=== PATIENT | male | born 1965 | race Caucasian/White ===

== ENCOUNTER 2020-09-16 11:47 | Observation (INO) ==
[2020-09-16] MEDS ORDERED: NORMAL SALINE 1,000 ML IV ONE (12:15)
--- NOTE | 2020-09-16 12:30 | ERNOTE ---
Dyspnea - Date Date of Service: 09/16/20 - General Presenting Symptoms: shortness of breath Time Seen by Provider: 09/16/20 11:56 Source: patient, family, EMS, RN notes reviewed, old records Exam Limitations: clinical condition - Immun/Allergies/Home Medications Immunizations: IMMUNIZATION HX Immunizations Up to Date Yes History of Influenza Vaccine Yes Hx Pneumococcal Vaccination No Allergies/Adverse Reactions: Allergies Sulfa (Sulfonamide Antibiotics) Allergy (Mild, Verified 08/14/20 14:10) RASH sulfamethoxazole [From Bactrim] Allergy (Mild, Verified 08/14/20 14:10) RASH trimethoprim [From Bactrim] Allergy (Mild, Verified 08/14/20 14:10) RASH Home Medications: HOME MEDICATIONS metoprolol tartrate 100 mg tablet 100 mg PO BID #60 tab 06/11/20 [Last Taken Unknown] hydrochlorothiazide 25 mg tablet 25 mg PO DAILY #30 tab 07/10/20 [Last Taken Unknown] - History of Present Illness Narrative: Dee is a 55-year-old male brought to the emergency department by ambulance from his home for shortness of breath. He began having shortness of breath with exertion and at rest 2 days ago. He has been extremely fatigued and has mostly been in bed. He has not been eating or drinking well. He was diagnosed with HIV in 1983. He has not been on antiviral drugs for approximately 10 years, but was seen in the virology clinic at the [facility] last week for preliminary testing prior to restarting his medications. A lumbar puncture was done on the . His mother reports that he seemed tired the following 2 days, but the next day he was doing much worse. She believes he has had some fevers. He has occasionally reported back pain. He denies any back pain currently. He does report having some pain in his chest off and on. He denies any vomiting or diarrhea. He has been having problems with his balance and has developed neuropathy in his lower extremities. He also had an MRI to evaluate this earlier in the month. His documents from his appointment last week show a CD4 count of 38. Date (Duration): 09/14/20 Treatment FIRER KILN: paramedics, oxygen Initiating event: Reports: unknown Frequency of episodes: Reports: no prior episodes Modifying Factors - (Improves): Reports: nothing Modifying Factors (Worsens): Reports: activity Associated Symptoms-Dyspnea: Reports: fever/chills, chest pain/discomfort, dizziness, weakness, loss of appetite. Denies: cough, wheezing, ankle/leg swelling Prior Treatment: Reports: recently seen. Denies: currently on antibiotics Review of Systems - Review of Systems Constitutional: Present: fatigue, malaise EYE: Present: no symptoms reported ENT: Absent: ear pain, nose congestion, nasal drainage, sore throat Respiratory: Present: shortness of breath. Absent: cough, wheezing Cardiology: Present: chest pain. Absent: syncope, edema Gastrointestinal/Abdominal: Present: eating less, drinking less. Absent: nausea, vomiting, diarrhea, abdominal pain Genitourinary: Absent: frequency, dysuria Musculoskeletal: Absent: back pain, joint pain Skin: Absent: rash, lesions Neurological: Present: dizziness/light-headedness, weakness. Absent: headache Endocrine: Present: no symptoms reported Hematologic/Lymphatic: Absent: easy bruising, easy bleeding Psych: Present: no symptoms reported Medical History (Last Reviewed 09/16/20 @ 12:27 by Dee Collazo NP) PVC (premature ventricular contraction) (Chronic) Holter 2020 PAC (premature atrial contraction) (Chronic) Holter 2020 Tachycardia (Chronic) Benign essential hypertension (Chronic) BPH w urinary obs/LUTS (Chronic) Elevated BP without diagnosis of hypertension (Chronic) Back pain (Chronic) Obesity (BMI 30.0-34.9) (Chronic) Onset Date: 02/14/17 Elevated PSA (Acute) Onset Date: 06/05/16 HIV (human immunodeficiency virus infection) 1984 Chronic sinusitis Onset Date: Unknown Surgical History: Surgical History (Last Reviewed 09/16/20 @ 12:27 by Dee Collazo NP) Hx of arthroscopy of right knee Onset Date: 06/25/11 Dr. Brady Hx of colonoscopy Onset Date: 02/19/16 Hx of sinus surgery Onset Date: 10/10/09 Dr. Crista Calle teeth extracted Onset Date: Unknown Family History: Family History (Last Reviewed 09/16/20 @ 12:27 by Dee Collazo NP) Mother Hypertension Hiatal hernia Father , Age 72 Unsure of hx No problems noted. 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 Highest level of school completed/degree received: high school graduate Service: No Tobacco: Smoking Status: Never smoker Alcohol: alcohol intake: former Substance Use: substance use type: does not use Dietary Habits: caffeine: Yes caffeine comment: Current every day Type: tea Physical Exam - Physical Exam General Appearance: Present: wd/wn, alert, mild distress, other - ill appearing Head Exam: Present: normal inspection Eye Exam: Normal inspection: bilateral Neck: Present: normal inspection, nontender, supple, full range of motion Respiratory: Present: accessory muscle use - dyspneic at rest, difficulty speaking in full sentences, decreased breath sounds - throughout Cardiovascular/Chest: Present: regular rate, rhythm, no murmur, normal peripheral pulses Gastrointestinal/Abdominal: Present: nontender, nondistended, soft Back Exam: Present: normal inspection, no vertebral tenderness, other - no erythema, drainage or tenderness at LP site Extremity Exam: Present: normal inspection, non-tender, no edema Neurological Exam: Present: alert, normal mood/affect, other - oriented most of the time but does have some intermittent confusion, poor historian Skin Exam: Present: warm/dry, other - pale Progress - Results and Orders Patient's Lab Results:: I have reviewed the patient's lab results. - Vital Signs Patient's Vital Signs:: I have reviewed the patient's vital signs. Vital Signs: Vital Signs 09/16/20 11:48 Temperature 37.7 C Pulse Rate 102 H Respiratory Rate 26 H Blood Pressure 105/71 O2 Sat by Pulse Oximetry 92 L - EKG EKG #1 EKG: NSR EKG read: Reviewed by me - X-Ray X-Ray #1 X-Ray: chest Interpretation: Reviewed by me X-ray Comments: Technique: PA and lateral views. Comparison: None Findings: There is infiltrate and/or atelectatic change in lung bases, greater on the left than the right. No pleural effusion. Heart size and pulmonary vascular caliber is normal. The skeletal structures are intact. IMPRESSION: BIBASILAR INFILTRATE AND/OR ATELECTASIS, GREATER ON THE LEFT THAN THE RIGHT. Electronically signed by Lm Cervantes MD. mL Cervantes MD - CT/Ultrasound CT/Ultrasound Narrative: CTA Chest: IMPRESSION: NO PULMONARY THROMBOEMBOLIC DISEASE. BILATERAL INFILTRATES AND/OR ATELECTASIS. MODERATE DIFFUSE HEPATIC STEATOSIS. PROBABLE CENTIMETER-SIZED INTRAHEPATIC CYST OR HEMANGIOMA. Electronically signed by Lm Cervantes MD. - Progress/Reassessment Chief Complaint: Dyspnea Progress:: Unchanged Progress Note-Subjective: 09/16/20 14:55 Discussed test results with the patient and his mother. CTA chest is negative for PE but does show bibasilar infiltrates. Work-up is otherwise unremarkable. Negative respiratory panel. Normal EKG and troponin. Patient has vomited once while in the department. He was given Zofran and has had no further vomiting. He continues to appear dyspneic and generally ill. His oxygen saturation was 90-92% on room air, this improved to the upper 90's with 2 liters via nasal canula. I contacted the consult line at [facility] to speak to Dr. Connors. Awaiting a call back from the on-call physician covering infectious disease. 09/16/20 15:[address] Araya from [facility]. He recommended initiating treatment for community acquired pneumonia under observation. He also recommended testing for histoplasmosis which I have ordered. 09/16/20 15:47 Dr. Merino agreed to admit the patient to observation. Levaquin ordered. Departure Clinical Impression: Symptomatic AIDS, Elevated BP without diagnosis of hypertension, Pneumonia - Departure Disposition: Still a patient Condition: Stable Referrals: Gurmeet Sanderson MD [Primary Care Provider] -
[2020-09-16] MEDS ORDERED: ONDANSETRON HCL/PF 2 MG/ML VIAL IV ONE (12:37)
[2020-09-16 12:38] LABS: Hematocrit 43.2 % (42.0-52.0); Hemoglobin 14.6 gm/dL (13.5-18.0); Mean Cell Volume 87.6 fl (78-100); Mean Corpuscular Hemoglobin 29.6 pg (27-31); Mean Corpuscular Hgb Conc 33.8 g/dl (32-36); Mean Platelet Volume 12.5 fl (8-11.3); Neutrophil % 75.5 % (42-75.0); Platelet Count 105 K/mm3 (150-450); Red Blood Count 4.93 M/mm3 (4.7-6.0); Red Cell Distribution Width 12.4 % (11.5-14.0); White Blood Count 6.6 K/mm3 (4.0-10.5)
[2020-09-16 12:47] LABS: Urine Bilirubin 3 mg/dl (NEGATIVE); Urine Blood Negative /ul (NEGATIVE); Urine Ketone Negative (NEGATIVE); Urine Nitrite Negative (NEGATIVE); Urine Protein 100 mg/dL (NEGATIVE); Urine Specific Gravity >=1.030 SP.GR. (1.005-1.030); Urine pH 5.5 pH (5.0-7.0)
[2020-09-16 12:57] LABS: Troponin I Less than 0.017 ng/mL (0.00-0.10)
[2020-09-16 12:58] LABS: Urine Appearance Cloudy (CLEAR); Urine Color Dark Yellow
[2020-09-16 12:58] LABS: ALT 21 U/L (19-67); AST 21 U/L (0-48); Albumin * 3.7 gm/dl (3.4-5.0); Alkaline Phosphatase * 48 U/L (50-170); BNP * 153 pg/mL (5-175); BUN/Creatinine Ratio 21.2 (9.0-21.6); Bilirubin, Total 1.4 mg/dL (0.0-1.1); Blood Urea Nitrogen 31 mg/dL (6-23); Ca. Corrected For Albumin 8.7 mg/dL (8.4-10.2); Calcium * 8.8 mg/dL (7.9-10.9); Carbon Dioxide 26.6 mmol/L (24-32.6); Chloride 99 mmol/L (97-106); Glucose * 166 mg/dL (70-110); Potassium 3.6 mmol/L (3.4-4.6); Sodium 138 mmol/L (132-142); Total Protein 8.6 gm/dL (6.2-8.2)
[2020-09-16 12:59] LABS: Urine Bacteria 2+; Urine Fine Granular Cast 0-5 /LPF; Urine Mucus Moderate - 2+; Urine RBC None Seen /hpf (0-5); Urine WBC 0-5 /hpf (0-5)
[2020-09-16 14:32] LABS: SARS-CoV-2 Not Detected (NotDetected)
[2020-09-16] MEDS ORDERED: LEVOFLOXACIN IN DEXTROSE 5 % 750 MG/150 ML BAG IV SCH (15:45)
[2020-09-16] MEDS ORDERED: ACETAMINOPHEN 325 MG TABLET PO PRN (16:44)
[2020-09-16] MEDS ORDERED: ONDANSETRON HCL/PF 2 MG/ML VIAL IV PRN (16:45)
[2020-09-16] MEDS ORDERED: NORMAL SALINE 2,000 ML IV ONE (16:46)
--- NOTE | 2020-09-16 17:11 | HP ---
Chief Complaint - Chief Complaint Date of Service: 09/16/20 Time of Service: 17:01 Chief Complaint: I have had shortness of breath, weakness, and pleuritic chest pain for more than 1 week. History of Present Illness: 55-year-old male with past medical history of HIV AIDS, BPH, and hypertension was evaluated in the ER for increasing weakness, nausea and episode of vomiting. The patient reports for over a week he has not been feeling well, and says he has been unable to eat or drink due to loss of appetite. The patient was diagnosed with HIV over 30 years ago and has been off of antivirals for over 10 years because he says he did not want to take those medications. He saw his neurologist at the [place] a week ago and was restarted on antiviral medications and dapsone, however he has not received the medications yet. He describes a pleuritic chest pain which is accompanied by shortness of breath which has made breathing very difficult. He also describes weakness in his lower extremities which makes ambulating difficult, however he denies any recent falls. Medical History (Last Reviewed 09/16/20 @ 12:27 by Dee Collazo NP) PVC (premature ventricular contraction) (Chronic) Holter 2020 PAC (premature atrial contraction) (Chronic) Holter 2020 Tachycardia (Chronic) Benign essential hypertension (Chronic) BPH w urinary obs/LUTS (Chronic) Elevated BP without diagnosis of hypertension (Chronic) Back pain (Chronic) Obesity (BMI 30.0-34.9) (Chronic) Onset Date: 02/14/17 Elevated PSA (Acute) Onset Date: 06/05/16 HIV (human immunodeficiency virus infection) 1984 Chronic sinusitis Onset Date: Unknown Surgical History: Surgical History (Last Reviewed 09/16/20 @ 12:27 by Dee Collazo NP) Hx of arthroscopy of right knee Onset Date: 06/25/11 Dr. Brady Hx of colonoscopy Onset Date: 02/19/16 Hx of sinus surgery Onset Date: 10/10/09 Dr. Crista Calle teeth extracted Onset Date: Unknown Family History: Family History (Last Reviewed 09/16/20 @ 12:27 by Dee Collazo NP) Mother Hypertension Hiatal hernia Father , Age 72 Unsure of hx No problems noted. 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 Highest level of school completed/degree received: high school graduate Service: No Tobacco: Smoking Status: Never smoker Alcohol: alcohol intake: former Substance Use: substance use type: does not use Dietary Habits: caffeine: Yes caffeine comment: Current every day Type: tea Peds Patient Hx - Developmental: No Pertinent Hx Peds Patient Hx - Medical: No Pertinent Hx Peds Patient Hx - Cardiac/Respiratory: No Pertinent Hx Peds Patient Hx - Surgical: No Surgical History Patient History - Cancer: No Hx of Cancer Review Of Systems (GEN) - Review of Systems Generalized/Overall Review: Present: Weakness, Chills, Fever EENTM: Present: No Symptoms Reported Respiratory: Present: Shortness of Breath Cardiac: Present: No Symptoms Reported Abdominal: Present: Nausea, Vomiting Genitourinary: Present: No Symptoms Reported Musculoskeletal: Present: No Symptoms Reported Neurological: Present: No Symptoms Reported Skin: Present: No Symptoms Reported Endocrine: Present: No Symptoms Reported Immunizations: IMMUNIZATION HX Immunizations Up to Date Yes History of Influenza Vaccine Yes Hx Pneumococcal Vaccination No Allergies/Adverse Reactions: Allergies Allergy/AdvReac Type Severity Reaction Status Date / Time Sulfa (Sulfonamide Allergy Mild RASH Verified 08/14/20 14:10 Antibiotics) sulfamethoxazole Allergy Mild RASH Verified 08/14/20 14:10 [From Bactrim] trimethoprim [From Bactrim] Allergy Mild RASH Verified 08/14/20 14:10 Home Medications: HOME MEDICATIONS metoprolol tartrate 100 mg tablet 100 mg PO BID #60 tab 06/11/20 [Last Taken Unknown] hydrochlorothiazide 25 mg tablet 25 mg PO DAILY #30 tab 07/10/20 [Last Taken Unknown] Exam - Exam Vital Signs: Vital Signs - Last Taken Temp 37.7 C 09/16/20 16:40 Pulse 97 09/16/20 16:40 Resp 25 H 09/16/20 16:40 BP 100/63 09/16/20 16:40 Pulse Ox 97 09/16/20 16:40 Constitutional: Present: Alert, Oriented x3, Cooperative, Well developed, Well nourished, No distress ENT Exam: Present: normal ENT inspection, hearing grossly normal Eye Exam: bilateral eye: normal inspection, PERRL, EOMI Neck: Present: non-tender, full range of motion, supple, normal inspection, trachea midline Back Exam: Present: normal inspection, no CVA tenderness, no vertebral tenderness Breasts: Present: Exam deferred, Nontender Respiratory: Present: chest non-tender, lungs clear, normal breath sounds, no respiratory distress, no accessory muscle use, decreased breath sounds Cardiovascular/Chest: Present: normal peripheral pulses, regular rate, rhythm, no chest tenderness, no edema, no gallop, no JVD, no murmur, no rub Peripheral Pulses: dorsalis-pedis (R): 2+, dorsalis-pedis (L): 2+ Abdomen: Present: Normal bowel sounds, soft, nontender, nondistended, no rebound tenderness, no hepatospenomegaly, no masses /Rectal: Present: Exam deferred Extremity: Present: normal range of motion, non-tender, normal inspection, no pedal edema, no calf tenderness, normal capillary refill, pelvis stable Skin Exam: Present: normal color, warm/dry, no cyanosis Lymphatic: Present: no adenopathy 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, normal cerebellar test, no motor/sensory deficits, alert, normal mood/affect, oriented x 3 Appearance: Present: appropriate appearance, appropriate insight, neat, no memory impairment Eye contact: Present: cooperative, good eye contact, normal speech Thoughts: Present: normal thought pattern, no apparent hallucination Diagnostic Studies: Abnormal Lab Results 09/16/20 09/16/20 09/16/20 Range/Units 12:13 12:29 12:29 Plt Count 105 L (150-450) K/mm3 MPV 12.5 H (8-11.3) fl Immature Gran % (Auto) 0.50 H (0.001-0.429) % Neutrophils % 75.5 H (42-75.0) % Lymphocytes % 14.3 L (20-51) % Monocytes % 9.4 H (0.0-9) % Lymphocytes # 0.94 L (1.5-3.5) k/mm3 D-Dimer 2.20 H (0.19-0.49) ugFEU/mL Anion Gap 16.0 H (6.8-13.8) mmol/L BUN 31 H D (6-23) mg/dL Creatinine 1.46 H D (0.4-1.4) mg/dL Est GFR (Non-Af Amer) 53 L D (60-130) mL/min Random Glucose 166 H (70-110) mg/dL Total Bilirubin 1.4 H (0.0-1.1) mg/dL Alkaline Phosphatase 48 L (50-170) U/L Total Protein 8.6 H (6.2-8.2) gm/dL Urine Protein (NEGATIVE) mg/dL Urine Bilirubin (NEGATIVE) mg/dl Urine Urobilinogen (NORMAL) EU/dl Urine Bacteria (NONE) Fine Granular Casts (NONE) /LPF Urine Mucus (NONE) 09/16/20 Range/Units 12:43 Plt Count (150-450) K/mm3 MPV (8-11.3) fl Immature Gran % (Auto) (0.001-0.429) % Neutrophils % (42-75.0) % Lymphocytes % (20-51) % Monocytes % (0.0-9) % Lymphocytes # (1.5-3.5) k/mm3 D-Dimer (0.19-0.49) ugFEU/mL Anion Gap (6.8-13.8) mmol/L BUN (6-23) mg/dL Creatinine (0.4-1.4) mg/dL Est GFR (Non-Af Amer) (60-130) mL/min Random Glucose (70-110) mg/dL Total Bilirubin (0.0-1.1) mg/dL Alkaline Phosphatase (50-170) U/L Total Protein (6.2-8.2) gm/dL Urine Protein 100 H (NEGATIVE) mg/dL Urine Bilirubin 3 H (NEGATIVE) mg/dl Urine Urobilinogen 2.0 H (NORMAL) EU/dl Urine Bacteria 2+ H (NONE) Fine Granular Casts 0-5 H (NONE) /LPF Urine Mucus Moderate - 2+ H (NONE) Laboratory Results WBC 6.6 K/mm3 (4.0-10.5) 09/16/20 12:13 RBC 4.93 M/mm3 (4.7-6.0) 09/16/20 12:13 Hgb 14.6 gm/dL (13.5-18.0) 09/16/20 12:13 Hct 43.2 % (42.0-52.0) 09/16/20 12:13 MCV 87.6 fl (78-100) 09/16/20 12:13 MCH 29.6 pg (27-31) 09/16/20 12:13 MCHC 33.8 g/dl (32-36) 09/16/20 12:13 RDW 12.4 % (11.5-14.0) 09/16/20 12:13 Plt Count 105 K/mm3 (150-450) L 09/16/20 12:13 MPV 12.5 fl (8-11.3) H 09/16/20 12:13 Immature Gran % (Auto) 0.50 % (0.001-0.429) H 09/16/20 12:13 Immature Gran # (Auto) 0.03 K/mm3 (0.000-0.0310) 09/16/20 12:13 Neutrophils % 75.5 % (42-75.0) H 09/16/20 12:13 Lymphocytes % 14.3 % (20-51) L 09/16/20 12:13 Monocytes % 9.4 % (0.0-9) H 09/16/20 12:13 Eosinophils % 0.0 % (0.0-3.0) 09/16/20 12:13 Basophils % 0.3 % (0.0-1.0) 09/16/20 12:13 Nucleated RBC % 0.0 k/mm3 (0-1) 09/16/20 12:13 Neutrophils # 5.0 K/mm3 (1.3-6.0) 09/16/20 12:13 Lymphocytes # 0.94 k/mm3 (1.5-3.5) L 09/16/20 12:13 Monocytes # 0.6 k/mm3 (0.0-1.0) 09/16/20 12:13 Eosinophils # 0.0 k/mm3 (0.0-0.7) 09/16/20 12:13 Absolute Basophils 0.0 k/mm3 (0.0-0.1) 09/16/20 12:13 D-Dimer 2.20 ugFEU/mL (0.19-0.49) H 09/16/20 12:29 Sodium 138 mmol/L (132-142) 09/16/20 12:29 Plasma Sodium 139 mmol/L (130-142) 09/16/20 12:29 Potassium 3.6 mmol/L (3.4-4.6) 09/16/20 12:29 Chloride 99 mmol/L (97-106) 09/16/20 12:29 Carbon Dioxide 26.6 mmol/L (24-32.6) 09/16/20 12:29 Anion Gap 16.0 mmol/L (6.8-13.8) H 09/16/20 12:29 BUN 31 mg/dL (6-23) H D 09/16/20 12:29 Creatinine 1.46 mg/dL (0.4-1.4) H D 09/16/20 12:29 Est GFR (Non-Af Amer) 53 mL/min (60-130) L D 09/16/20 12:29 BUN/Creatinine Ratio 21.2 (9.0-21.6) 09/16/20 12:29 Random Glucose 166 mg/dL (70-110) H 09/16/20 12:29 Lactic Acid, Venous 1.9 mmol/L (0.4-2.0) 09/16/20 12:29 Calcium 8.8 mg/dL (7.9-10.9) 09/16/20 12:29 Calcium Adj for Albumin 8.7 mg/dL (8.4-10.2) 09/16/20 12:29 Total Bilirubin 1.4 mg/dL (0.0-1.1) H 09/16/20 12:29 AST 21 U/L (0-48) 09/16/20 12:29 ALT 21 U/L (19-67) 09/16/20 12:29 Alkaline Phosphatase 48 U/L (50-170) L 09/16/20 12:29 Troponin I Less than 0.017 ng/mL (0.00-0.10) 09/16/20 12:29 B-Natriuretic Peptide 153 pg/mL (5-175) 09/16/20 12:29 Total Protein 8.6 gm/dL (6.2-8.2) H 09/16/20 12:29 Albumin 3.7 gm/dl (3.4-5.0) 09/16/20 12:29 Urine Color Dark yellow 09/16/20 12:43 Urine Appearance Cloudy (CLEAR) 09/16/20 12:43 Urine pH 5.5 pH (5.0-7.0) 09/16/20 12:43 Ur Specific [place] >=1.030 SP.GR. (1.005-1.030) 09/16/20 12:43 Urine Protein 100 mg/dL (NEGATIVE) H 09/16/20 12:43 Urine Glucose (UA) Negative mg/dL (NEGATIVE) 09/16/20 12:43 Urine Ketones Negative mg/dL (NEGATIVE) 09/16/20 12:43 Urine Blood Negative /ul (NEGATIVE) 09/16/20 12:43 Urine Nitrate Negative (NEGATIVE) 09/16/20 12:43 Urine Bilirubin 3 mg/dl (NEGATIVE) H 09/16/20 12:43 Urine Urobilinogen 2.0 EU/dl (NORMAL) H 09/16/20 12:43 Ur Leukocyte Esterase Negative /ul (NEGATIVE) 09/16/20 12:43 Urine RBC None seen /hpf (0-5) 09/16/20 12:43 Urine WBC 0-5 /hpf (0-5) 09/16/20 12:43 Ur Epithelial Cells 0-5 /hpf (0-5) 09/16/20 12:43 Urine Bacteria 2+ (NONE) H 09/16/20 12:43 Fine Granular Casts 0-5 /LPF (NONE) H 09/16/20 12:43 Urine Mucus Moderate - 2+ (NONE) H 09/16/20 12:43 Urine Culture Comments No culture indicated 09/16/20 12:43 Chlamy pneumoniae PCR Not detected (NotDetected) 09/16/20 13:34 Adenovirus (PCR) Not detected (NotDetected) 09/16/20 13:34 B. pertussis DNA (PCR) Not detected (NotDetected) 09/16/20 13:34 B.parapertussis DNA PCR Not detected (NotDetected) 09/16/20 13:34 Coronavirus OC43 (PCR) Not detected (NotDetected) 09/16/20 13:34 Coronavirus HKU1 (PCR) Not detected (NotDetected) 09/16/20 13:34 Coronavirus 229E (PCR) Not detected (NotDetected) 09/16/20 13:34 Coronavirus NL63 (PCR) Not detected (NotDetected) 09/16/20 13:34 Human Metapneumovir PCR Not detected (NotDetected) 09/16/20 13:34 Influenza A (RT-PCR) Not detected (NotDetected) 09/16/20 13:34 Influenza B (RT-PCR) Not detected (NotDetected) 09/16/20 13:34 M. pneumoniae (PCR) Not detected (NotDetected) 09/16/20 13:34 Parainfluenza 1 (PCR) Not detected (NotDetected) 09/16/20 13:34 Parainfluenza 2 (PCR) Not detected (NotDetected) 09/16/20 13:34 Parainfluenza 3 (PCR) Not detected (NotDetected) 09/16/20 13:34 Parainfluenza 4 (PCR) Not detected (NotDetected) 09/16/20 13:34 RSV (PCR) Not detected (NotDetected) 09/16/20 13:34 Rhinovirus (PCR) Not detected (NotDetected) 09/16/20 13:34 SARS-CoV-2 (PCR) Not detected (NotDetected) 09/16/20 13:34 Assessment/Plan - Narrative Narrative: Patient was evaluated medical chart was reviewed and decision to admit for a diagnosis of community-acquired bilateral interstitial pneumonia/community- acquired pneumonia, dehydration, CHUY, and HIV AIDS was made. Patient is resting comfortably in his room and is tolerating IV hydration with normal saline without any issues. At bedside he appears moderately dehydrated and this is confirmed with his lab results. Patient was found to have an CHUY most likely secondary to acute dehydration, he will need at least 1 night of intrahospital treatment with IV hydration and antibiotics to treat bilateral interstitial pneumonia. He is currently on oxygen due to mild hypoxia upon arriving to the hospital and has better breathing. Repeat lab has been ordered for tomorrow morning for reevaluation of renal function and electrolytes as well as bilirubin which is also mildly elevated on admission. The patient reports that he has been restarted on certain medications but does not recall the name, will contact his pharmacy in order to get a current list of his medications so that we continue administering during the hospitalization. - Assessment/Plan (1) Acute interstitial pneumonia Problem: Acute (2) Symptomatic AIDS Problem: Acute (3) Moderate dehydration Problem: Acute (4) CHUY (acute kidney injury) Problem: Acute (5) Elevated bilirubin Problem: Acute (6) Generalized weakness Problem: Acute
[2020-09-16] MEDS: PANTOPRAZOLE SODIUM 40 MG in NORMAL SALINE 100 ML IV SCH (17:54)
[2020-09-16] MEDS: FLUCONAZOLE 200 MG TABLET PO SCH (21:29)
[2020-09-16] MEDS: METOPROLOL TARTRATE 100 MG TABLET PO SCH (21:29)
[2020-09-16] MEDS: NYSTATIN ORAL.SUSP PO SCH (21:30)
[2020-09-17] MEDS: PANTOPRAZOLE SODIUM 40 MG in NORMAL SALINE 100 ML IV SCH (04:32)
[2020-09-17 06:39] LABS: Anion Gap 13.2 mmol/L (6.8-13.8); BUN/Creatinine Ratio 23.1 (9.0-21.6); Ca. Corrected For Albumin 8.8 mg/dL (8.4-10.2); Calcium * 8.3 mg/dL (7.9-10.9); Carbon Dioxide 27.1 mmol/L (24-32.6); Potassium 3.3 mmol/L (3.4-4.6); Total Protein 7.2 gm/dL (6.2-8.2)
[2020-09-17] MEDS: ATOVAQUONE 750 MG/5 ML PO SCH ×2 (08:02→10:04)
[2020-09-17] MEDS: METOPROLOL TARTRATE 100 MG TABLET PO SCH (08:04)
[2020-09-17] MEDS: FLUCONAZOLE 200 MG TABLET PO SCH (08:04)
[2020-09-17] MEDS: NYSTATIN ORAL.SUSP PO SCH ×2 (08:07→13:15)
[2020-09-17] MEDS ORDERED: POTASSIUM CHLORIDE 20 MEQ TABLET.SA PO ONE (09:57)
--- NOTE | 2020-09-17 12:09 | DS ---
(1) Acute interstitial pneumonia Problem: Acute (2) Symptomatic AIDS Problem: Acute (3) Moderate dehydration Problem: Resolved (4) CHUY (acute kidney injury) Problem: Resolved (5) Elevated bilirubin Problem: Resolved (6) Generalized weakness Problem: Resolved Date of Discharge:: 09/17/20 Hospital Course: 55-year-old male admitted for moderate dehydration, generalized weakness, CHUY, and HIV AIDS was evaluated at bedside this morning was found to be afebrile and in no acute distress. The patient has responded favorably to the intrahospital treatment with IV fluids and IV antibiotics. He has had no recurrence of fever and reports feeling stronger than before. Repeat labs done this morning revealed resolution of his CHUY and normalization of bilirubin levels which confirms my suspicion of acute dehydration. The patient is now tolerating oral intake and denies any GI issues. Therefore given these findings we will discharge him home with additional days of p.o. antibiotics. This morning the patient had to be straight cath due to urinary retention most likely due to his history of BPH and the fluids that he was administered during hospitalization, however after the catheterization the issue has resolved. He was informed this morning that results from histoplasmosis has not returned, once it becomes available we will inform him on an outpatient basis. In the meantime he is to follow-up with his PCP in 3 to 5 days. Patient will also be referred to outpatient physical therapy to address weakness in both lower extremity that makes it difficult to stand and ambulate. Procedures Performed: see notes below List Procedures: Straight catheterization of bladder. Results and Findings: Lab Pending Results 09/16/20 12:13: WBC 6.6, RBC 4.93, Hgb 14.6, Hct 43.2, MCV 87.6, MCH 29.6, MCHC 33.8, RDW 12.4, Plt Count 105 L, MPV 12.5 H, Immature Gran % (Auto) 0.50 H, Immature Gran # (Auto) 0.03, Neutrophils % 75.5 H, Lymphocytes % 14.3 L, Monocytes % 9.4 H, Eosinophils % 0.0, Basophils % 0.3, Nucleated RBC % 0.0, Neutrophils # 5.0, Lymphocytes # 0.94 L, Monocytes # 0.6, Eosinophils # 0.0, Absolute Basophils 0.0 09/16/20 12:29: Sodium 138, Plasma Sodium 139, Potassium 3.6, Chloride 99, Carbon Dioxide 26.6, Anion Gap 16.0 H, BUN 31 H D, Creatinine 1.46 H D, Est GFR (Non-Af Amer) 53 L D, BUN/Creatinine Ratio 21.2, Random Glucose 166 H, Calcium 8.8, Calcium Adj for Albumin 8.7, Total Bilirubin 1.4 H, AST 21, ALT 21, Alkaline Phosphatase 48 L, Troponin I Less than 0.017, B-Natriuretic Peptide 153, Total Protein 8.6 H, Albumin 3.7 09/16/20 12:29: D-Dimer 2.20 H 09/16/20 12:29: Lactic Acid, Venous 1.9 09/16/20 12:43: Urine Color Dark yellow, Urine Appearance Cloudy, Urine pH 5.5, Ur Specific [place] >=1.030, Urine Protein 100 H, Urine Glucose (UA) Negative, Urine Ketones Negative, Urine Blood Negative, Urine Nitrate Negative, Urine Bilirubin 3 H, Urine Urobilinogen 2.0 H, Ur Leukocyte Esterase Negative, Urine RBC None seen, Urine WBC 0-5, Ur Epithelial Cells 0-5, Urine Bacteria 2+ H, Fine Granular Casts 0-5 H, Urine Mucus Moderate - 2+ H, Urine Culture Comments No culture indicated 09/16/20 13:34: Chlamy pneumoniae PCR Not detected, Adenovirus (PCR) Not detected, B. pertussis DNA (PCR) Not detected, B.parapertussis DNA PCR Not detected, Coronavirus OC43 (PCR) Not detected, Coronavirus HKU1 (PCR) Not detected, Coronavirus 229E (PCR) Not detected, Coronavirus NL63 (PCR) Not detected, Human Metapneumovir PCR Not detected, Influenza A (RT-PCR) Not detected, Influenza B (RT-PCR) Not detected, M. pneumoniae (PCR) Not detected, Parainfluenza 1 (PCR) Not detected, Parainfluenza 2 (PCR) Not detected, Parainfluenza 3 (PCR) Not detected, Parainfluenza 4 (PCR) Not detected, RSV (PCR) Not detected, Rhinovirus (PCR) Not detected, SARS-CoV-2 (PCR) Not detected 09/17/20 06:12: Sodium 140, Plasma Sodium 140, Potassium 3.3 L, Chloride 103, Carbon Dioxide 27.1, Anion Gap 13.2, BUN 27 H, Creatinine 1.17, Est GFR (Non-Af Amer) 68 D, BUN/Creatinine Ratio 23.1 H, Random Glucose 114 H D, Calcium 8.3, Calcium Adj for Albumin 8.8, Total Bilirubin 1.0, AST 19, ALT 18 L, Alkaline Phosphatase 39 L, Total Protein 7.2, Albumin 3.0 L Discharge Location: Home Disposition: Home self-care Condition: Stable Face to Face Encounter completed per [facility] Guidelines: No Discharge Activity: Activity as tolerated Discharge Diet: General/regular food Referrals: Gurmeet Sanderson MD [Primary Care Provider] - Additional Patient Instructions (free text): Follow up at [facility] with Dr Connors on WednesdayOctober 30 at 11:00am Complete Home Medications List: Complete Home Medication List: metoprolol tartrate 100 mg tablet 100 mg PO BID #60 tab 06/11/20 hydrochlorothiazide 25 mg tablet 25 mg PO DAILY #30 tab 07/10/20 Atovaquone [Mepron] 1,500 mg PO DAILY 09/16/20 Bictegrav/Emtricit/Tenofov Ala [Biktarvy 50-200-25 mg Tablet] 1 ea PO DAILY 09/16/20 Dapsone 100 mg PO DAILY 09/16/20 Fluconazole [Diflucan] 200 mg PO DAILY 09/16/20 Nystatin 5 ml PO QID 09/16/20 Levofloxacin [Levaquin] 750 mg PO DAILY 5 Days #5 tab 09/17/20 Forms: Patient Portal Registration
[2020-09-17 15:00] VITALS: BP 113/74
== END 2020-09-17 15:22 | disposition home or self-care (01) ==
LOC: ER 11:47 → MS 11:47
PROVIDERS: ADMIT Family Medicine; ATTEND Family Medicine

== ENCOUNTER 2020-09-29 17:24 | Observation (INO) ==
--- NOTE | 2020-09-29 17:45 | ERNOTE ---
<Cuate Jung - Last Filed: 09/29/20 18:04> Chest Pain/Cardiac HPI Date of Service: 09/29/20 Chief Complaint: Chest Pain Time Seen by Provider: 09/29/20 17:45 Source: patient Exam Limitations: no limitations, clinical condition Immunizations: IMMUNIZATION HX Immunizations Up to Date Yes History of Influenza Vaccine Yes Hx Pneumococcal Vaccination Yes Allergies/Adverse Reactions: Allergies Sulfa (Sulfonamide Antibiotics) Allergy (Mild, Verified 09/29/20 17:39) RASH sulfamethoxazole [From Bactrim] Allergy (Mild, Verified 09/29/20 17:39) RASH trimethoprim [From Bactrim] Allergy (Mild, Verified 09/29/20 17:39) RASH Home Medications: HOME MEDICATIONS metoprolol tartrate 100 mg tablet 100 mg PO BID #60 tab 06/11/20 [Last Taken 09/29/20 19:00] hydrochlorothiazide 25 mg tablet 25 mg PO DAILY #30 tab 07/10/20 [Last Taken 09/29/20 08:00] Bictegrav/Emtricit/Tenofov Ala [Biktarvy 50-200-25 mg Tablet] 1 ea PO DAILY 09/16/20 [Last Taken 09/29/20 19:00] Dapsone 100 mg PO DAILY 09/16/20 [Last Taken 09/29/20 08:00] Date (Duration): 09/29/20 Time (Timing): 17:00 Timing: constant Severity/Quality: moderate Location: substernal Chest Pain Radiation: no radiation Activities at Onset: none Modifying Factors - Improves: Present: antacids Modifying Factors - Worsens: Present: antacids Nitro Today/Relief: no nitro taken today Aspirin Treatment Today: no aspirin today Prior Chest Pain/Cardiac Workup: Reports: prior chest pain, no prior cardiac workup, non-cardiac Review of Systems - Review of Systems Constitutional: Present: no symptoms reported EYE: Present: no symptoms reported ENT: Present: no symptoms reported Respiratory: Present: no symptoms reported Cardiology: Present: no symptoms reported Gastrointestinal/Abdominal: Present: no symptoms reported Genitourinary: Present: no symptoms reported Musculoskeletal: Present: no symptoms reported Skin: Present: no symptoms reported Medical History (Last Reviewed 09/29/20 @ 18:14 by Cuate Jung DO) PVC (premature ventricular contraction) (Chronic) Holter 2020 PAC (premature atrial contraction) (Chronic) Holter 2020 Tachycardia (Chronic) Benign essential hypertension (Chronic) BPH w urinary obs/LUTS (Chronic) Elevated BP without diagnosis of hypertension (Chronic) Back pain (Chronic) Obesity (BMI 30.0-34.9) (Chronic) Onset Date: 02/14/17 Elevated PSA (Acute) Onset Date: 06/05/16 HIV (human immunodeficiency virus infection) 1984 Chronic sinusitis Onset Date: Unknown Surgical History: Surgical History (Last Reviewed 09/29/20 @ 18:14 by Cuate Jung DO) Hx of arthroscopy of right knee Onset Date: 06/25/11 Dr. Brady Hx of colonoscopy Onset Date: 02/19/16 Hx of sinus surgery Onset Date: 10/10/09 Dr. Crista Calle teeth extracted Onset Date: Unknown Family History: Family History (Last Reviewed 09/29/20 @ 18:14 by Cuate Jung DO) Mother Hypertension Hiatal hernia Father , Age 72 Unsure of hx No problems noted. 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 Highest level of school completed/degree received: high school graduate Service: No Tobacco: Smoking Status: Never smoker Alcohol: alcohol intake: former Substance Use: substance use type: does not use Dietary Habits: caffeine: Yes caffeine comment: Current every day Type: tea Physical Exam - Physical Exam General Appearance: Present: mild distress Head Exam: Present: normal inspection, no evidence of injury Eye Exam: Normal inspection: bilateral, PERRL: bilateral, EOMI: bilateral Ears, Nose, Throat: Present: normal ENT inspection Neck: Present: normal inspection Respiratory: Present: no respiratory distress Cardiovascular/Chest: Present: regular rate, rhythm Gastrointestinal/Abdominal: Present: normal bowel sounds Back Exam: Present: normal inspection Progress - Results and Orders Patient's Lab Results:: I have reviewed the patient's lab results. - Vital Signs Patient's Vital Signs:: I have reviewed the patient's vital signs. Vital Signs: Vital Signs 09/29/20 17:31 Temperature 36.8 C Pulse Rate 95 Respiratory Rate 18 Blood Pressure 119/72 O2 Sat by Pulse Oximetry 95 - Progress/Reassessment Chief Complaint: Chest Pain Departure Clinical Impression: Pulmonary embolus, right - Departure Disposition: Short Term Hospital Inpatient Condition: Fair <Al Betancourt Santos - Last Filed: 09/30/20 03:06> Chest Pain/Cardiac HPI Immunizations: IMMUNIZATION HX Immunizations Up to Date Yes History of Influenza Vaccine Yes Hx Pneumococcal Vaccination Yes Medical History (Last Reviewed 09/29/20 @ 18:14 by Cuate Jung DO) PVC (premature ventricular contraction) (Chronic) Holter 2020 PAC (premature atrial contraction) (Chronic) Holter 2020 Tachycardia (Chronic) Benign essential hypertension (Chronic) BPH w urinary obs/LUTS (Chronic) Elevated BP without diagnosis of hypertension (Chronic) Back pain (Chronic) Obesity (BMI 30.0-34.9) (Chronic) Onset Date: 02/14/17 Elevated PSA (Acute) Onset Date: 06/05/16 HIV (human immunodeficiency virus infection) 1984 Chronic sinusitis Onset Date: Unknown Surgical History: Surgical History (Last Reviewed 09/29/20 @ 18:14 by Cuate Jung DO) Hx of arthroscopy of right knee Onset Date: 06/25/11 Dr. Brady Hx of colonoscopy Onset Date: 02/19/16 Hx of sinus surgery Onset Date: 10/10/09 Dr. Tobin Mcdonald teeth extracted Onset Date: Unknown Family History: Family History (Last Reviewed 09/29/20 @ 18:14 by Cuate Jung DO) Mother Hiatal hernia Hypertension Father , Age 72 Unsure of hx No problems noted. 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 Highest level of school completed/degree received: high school graduate Service: No Tobacco: Smoking Status: Never smoker Alcohol: alcohol intake: former Substance Use: substance use type: does not use Dietary Habits: caffeine: Yes caffeine comment: Current every day Type: tea Progress - Vital Signs Vital Signs: Vital Signs 09/29/20 17:31 09/29/20 19:09 09/29/20 19:19 Temperature 36.8 C Pulse Rate 95 94 14 L Respiratory Rate 18 17 19 Blood Pressure 119/72 O2 Sat by Pulse Oximetry 95 94 09/29/20 19:37 Temperature Pulse Rate 113 H Respiratory Rate 28 H Blood Pressure 121/90 H O2 Sat by Pulse Oximetry 90 L Plan - Plan Plan: admit patient to Dr. Merino observation we will start Lovenox
[2020-09-29] MEDS ORDERED: ALBUTEROL SULFATE 2.5 MG/3 ML VIAL.NEB IH ONE (18:29)
[2020-09-29] MEDS ORDERED: DEXAMETHASONE SODIUM PHOSP/PF 10 MG/ML VIAL IV ONE (18:31)
[2020-09-29 18:35] LABS: Hematocrit 35.9 % (42.0-52.0); Hemoglobin 12.1 gm/dL (13.5-18.0); Mean Cell Volume 89.3 fl (78-100); Mean Corpuscular Hemoglobin 30.1 pg (27-31); Mean Corpuscular Hgb Conc 33.7 g/dl (32-36); Mean Platelet Volume 11.8 fl (8-11.3); Neutrophil # 4.3 K/mm3 (1.3-6.0); Neutrophil % 67.8 % (42-75.0); Platelet Count 103 K/mm3 (150-450); Red Blood Count 4.02 M/mm3 (4.7-6.0); Red Cell Distribution Width 13.5 % (11.5-14.0); White Blood Count 6.4 K/mm3 (4.0-10.5)
[2020-09-29 18:40] LABS: Prothrombin Time (Patient) 10.7 Seconds (9.1-10.7)
[2020-09-29 18:42] LABS: INR 1.03 INR (0.92-1.08); Partial Thrombolplastin Time 23.8 Seconds (24-32)
[2020-09-29 18:48] LABS: ALT 23 U/L (19-67); AST 14 U/L (0-48); Albumin * 3.6 gm/dl (3.4-5.0); Alkaline Phosphatase * 54 U/L (50-170); Anion Gap 14.7 mmol/L (6.8-13.8); BUN/Creatinine Ratio 16.7 (9.0-21.6); Bilirubin, Total 0.7 mg/dL (0.0-1.1); Blood Urea Nitrogen 20 mg/dL (6-23); Ca. Corrected For Albumin 8.8 mg/dL (8.4-10.2); Calcium * 8.8 mg/dL (7.9-10.9); Carbon Dioxide 26.6 mmol/L (24-32.6); Chloride 103 mmol/L (97-106); Glucose * 134 mg/dL (70-110); Potassium 3.3 mmol/L (3.4-4.6); Sodium 141 mmol/L (132-142); Total Protein 7.7 gm/dL (6.2-8.2); Troponin I Less than 0.017 ng/mL (0.00-0.10)
[2020-09-29] MEDS ORDERED: DEXAMETHASONE SODIUM PHOSP/PF 10 MG/ML VIAL ONE (19:56)
[2020-09-29] MEDS ORDERED: ENOXAPARIN SODIUM 100 MG/ML SYRG SC SCH (22:00)
[2020-09-30] MEDS ORDERED: ENOXAPARIN SODIUM 30 MG, ENOXAPARIN SODIUM 80 MG SC SCH ×2 (10:00)
[2020-09-30] MEDS ORDERED: Bictegrav/Emtricit/Tenofov Ala [Biktarvy 50-200-25 Mg Tablet] PO SCH (10:15)
[2020-09-30] MEDS ORDERED: METOPROLOL TARTRATE 100 MG TABLET PO SCH (10:15)
[2020-09-30] MEDS ORDERED: HYDROCHLOROTHIAZIDE 25 MG TABLET PO SCH (10:15)
[2020-09-30] MEDS ORDERED: POTASSIUM CHLORIDE 20 MEQ TABLET.SA PO ONE (10:35)
--- NOTE | 2020-09-30 10:37 | HPDIS ---
Chief Complaint - Chief Complaint Date of Service: 09/30/20 Time of Service: 10:27 Chief Complaint: I had chest tightness yesterday morning which shortness of breath History of Present Illness: 55-year-old male with past medical history of HIV/AIDS, BPH, and hypertension was evaluated in the ER for increasing tightness in the patient's chest and shortness of breath. The patient reports he started experiencing tightness in his chest and increased shortness of breath yesterday morning shortly after waking up, his mother was present at the time reports hearing him wheezing which is unlike him. The patient started feeling uneasy when his symptoms did not resolve and so he decided to come into the ER for evaluation. Once in the ER the patient was found to have decreased oxygen saturation and a positive D-dimer, this was follow-up by a pulmonary CTA which revealed a pulmonary embolus in the right lung. He was also found to have lung scarring versus atelectasis in the left lung. The patient was then admitted and was star tracy on Lovenox at therapeutic levels. He is tolerating the medication without any issues and denies any shortness of breath and is saturating adequately on room air. This morning at bedside he denied ever having a VTE before so it was explained to him that per guidelines he will have to stay on anticoagulation for at least 12 weeks. When asked he denies being sedentary but says since being treated for pneumonia about a month ago he has not been as active as before because he feels he has not returned to his previous level of energy. The patient has also been out of work since he has not been feeling well. Medical History (Last Updated 09/30/20 @ 01:16 by Gisselle Voss RN) PVC (premature ventricular contraction) (Chronic) Holter 2020 PAC (premature atrial contraction) (Chronic) Holter 2020 Tachycardia (Chronic) Benign essential hypertension (Chronic) BPH w urinary obs/LUTS (Chronic) Elevated BP without diagnosis of hypertension (Chronic) Back pain (Chronic) Obesity (BMI 30.0-34.9) (Chronic) Onset Date: 02/14/17 Elevated PSA (Acute) Onset Date: 06/05/16 HIV (human immunodeficiency virus infection) 1984 Pneumonia Chronic sinusitis Onset Date: Unknown Surgical History: Surgical History (Last Reviewed 09/30/20 @ 00:29 by Gisselle Voss RN) Hx of arthroscopy of right knee Onset Date: 06/25/11 Dr. Brady Hx of colonoscopy Onset Date: 02/19/16 Hx of sinus surgery Onset Date: 10/10/09 Dr. Crista Calle teeth extracted Onset Date: Unknown Family History: Family History (Last Reviewed 09/30/20 @ 00:29 by Gisselle Voss RN) Mother Hypertension Hiatal hernia Father , Age 72 Unsure of hx No problems noted. 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 Highest level of school completed/degree received: high school graduate Service: No Tobacco: Smoking Status: Never smoker Alcohol: alcohol intake: former Substance Use: substance use type: does not use Dietary Habits: caffeine: Yes caffeine comment: Current every day Type: tea Peds Patient Hx - Developmental: No Pertinent Hx Peds Patient Hx - Medical: No Pertinent Hx Peds Patient Hx - Cardiac/Respiratory: No Pertinent Hx Peds Patient Hx - Surgical: No Surgical History Patient History - Cancer: No Hx of Cancer Review Of Systems (GEN) - Review of Systems Generalized/Overall Review: Present: No Symptoms Reported EENTM: Present: No Symptoms Reported Respiratory: Present: Shortness of Breath Cardiac: Present: No Symptoms Reported Abdominal: Present: No Symptoms Reported Genitourinary: Present: No Symptoms Reported Musculoskeletal: Present: No Symptoms Reported Neurological: Present: No Symptoms Reported Skin: Present: No Symptoms Reported Endocrine: Present: No Symptoms Reported Immunizations: IMMUNIZATION HX Immunizations Up to Date Yes History of Influenza Vaccine Yes Hx Pneumococcal Vaccination Yes Allergies/Adverse Reactions: Allergies Allergy/AdvReac Type Severity Reaction Status Date / Time Sulfa (Sulfonamide Allergy Mild RASH Verified 09/29/20 17:39 Antibiotics) sulfamethoxazole Allergy Mild RASH Verified 09/29/20 17:39 [From Bactrim] trimethoprim [From Bactrim] Allergy Mild RASH Verified 09/29/20 17:39 Home Medications: HOME MEDICATIONS metoprolol tartrate 100 mg tablet 100 mg PO BID #60 tab 06/11/20 [Last Taken 09/29/20 19:00] hydrochlorothiazide 25 mg tablet 25 mg PO DAILY #30 tab 07/10/20 [Last Taken 09/29/20 08:00] Bictegrav/Emtricit/Tenofov Ala [Biktarvy 50-200-25 mg Tablet] 1 ea PO DAILY 09/16/20 [Last Taken 09/29/20 19:00] Dapsone 100 mg PO DAILY 09/16/20 [Last Taken 09/29/20 08:00] Apixaban [Eliquis] 5 mg PO BID 77 Days #154 tab 09/30/20 [Last Taken Unknown] Apixaban [Eliquis] 10 mg PO BID 7 Days #28 tab 09/30/20 [Last Taken Unknown] Exam - Exam Vital Signs: Vital Signs - Last Taken Temp 36.8 C 09/30/20 10:02 Pulse 90 09/30/20 10:02 Resp 18 09/30/20 10:02 BP 113/73 09/30/20 10:02 Pulse Ox 98 09/30/20 10:02 Constitutional: Present: Alert, Oriented x3, Cooperative, Well developed, Well nourished, No distress ENT Exam: Present: normal ENT inspection, hearing grossly normal Eye Exam: bilateral eye: normal inspection, PERRL, EOMI Neck: Present: non-tender, full range of motion, supple, normal inspection, trachea midline, limited range of motion, lymphadenopathy (R) Back Exam: Present: normal inspection, no CVA tenderness, no vertebral tenderness Breasts: Present: Exam deferred, Nontender Respiratory: Present: chest non-tender, lungs clear, normal breath sounds, no respiratory distress, no accessory muscle use Cardiovascular/Chest: Present: normal peripheral pulses, regular rate, rhythm, no chest tenderness, no edema, no gallop, no JVD, no murmur, no rub Peripheral Pulses: dorsalis-pedis (R): 3+, dorsalis-pedis (L): 3+ Abdomen: Present: Normal bowel sounds, soft, nontender, nondistended, no rebound tenderness, no hepatospenomegaly, no masses /Rectal: Present: Exam deferred Extremity: Present: normal range of motion, non-tender, normal inspection, no pedal edema, no calf tenderness, normal capillary refill, pelvis stable Skin Exam: Present: normal color, warm/dry, no cyanosis Lymphatic: Present: no adenopathy Neurologic: Present: 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 nml as tested, normal cerebellar test, no motor/sensory deficits, alert, normal mood/affect, oriented x 3 Appearance: Present: appropriate appearance, appropriate insight, neat, no memory impairment Eye contact: Present: cooperative, good eye contact, normal speech Thoughts: Present: normal thought pattern, no apparent hallucination Diagnostic Studies: Abnormal Lab Results 09/29/20 09/29/20 09/29/20 Range/Units 18:25 18:25 18:25 RBC 4.02 L (4.7-6.0) M/mm3 Hgb 12.1 L (13.5-18.0) gm/dL Hct 35.9 L (42.0-52.0) % Plt Count 103 L (150-450) K/mm3 MPV 11.8 H (8-11.3) fl Immature Gran % (Auto) 0.60 H (0.001-0.429) % Immature Gran # (Auto) 0.04 H (0.000-0.0310) K/mm3 Lymphocytes # 1.36 L (1.5-3.5) k/mm3 PTT (Dante) 23.8 L (24-32) Seconds Potassium 3.3 L (3.4-4.6) mmol/L Anion Gap 14.7 H (6.8-13.8) mmol/L Random Glucose 134 H (70-110) mg/dL Laboratory Results WBC 6.4 K/mm3 (4.0-10.5) 09/29/20 18:25 RBC 4.02 M/mm3 (4.7-6.0) L 09/29/20 18:25 Hgb 12.1 gm/dL (13.5-18.0) L 09/29/20 18:25 Hct 35.9 % (42.0-52.0) L 09/29/20 18:25 MCV 89.3 fl (78-100) 09/29/20 18:25 MCH 30.1 pg (27-31) 09/29/20 18:25 MCHC 33.7 g/dl (32-36) 09/29/20 18:25 RDW 13.5 % (11.5-14.0) 09/29/20 18:25 Plt Count 103 K/mm3 (150-450) L 09/29/20 18:25 MPV 11.8 fl (8-11.3) H 09/29/20 18:25 Immature Gran % (Auto) 0.60 % (0.001-0.429) H 09/29/20 18:25 Immature Gran # (Auto) 0.04 K/mm3 (0.000-0.0310) H 09/29/20 18:25 Neutrophils % 67.8 % (42-75.0) 09/29/20 18:25 Lymphocytes % 21.4 % (20-51) 09/29/20 18:25 Monocytes % 8.8 % (0.0-9) 09/29/20 18:25 Eosinophils % 0.8 % (0.0-3.0) 09/29/20 18:25 Basophils % 0.6 % (0.0-1.0) 09/29/20 18:25 Nucleated RBC % 0.0 k/mm3 (0-1) 09/29/20 18:25 Neutrophils # 4.3 K/mm3 (1.3-6.0) 09/29/20 18:25 Lymphocytes # 1.36 k/mm3 (1.5-3.5) L 09/29/20 18:25 Monocytes # 0.6 k/mm3 (0.0-1.0) 09/29/20 18:25 Eosinophils # 0.1 k/mm3 (0.0-0.7) 09/29/20 18:25 Absolute Basophils 0.0 k/mm3 (0.0-0.1) 09/29/20 18:25 PT 10.7 Seconds (9.1-10.7) 09/29/20 18:25 INR (Anticoag Therapy) 1.03 INR (0.92-1.08) 09/29/20 18:25 PTT (Dante) 23.8 Seconds (24-32) L 09/29/20 18:25 Sodium 141 mmol/L (132-142) 09/29/20 18:25 Plasma Sodium 142 mmol/L (130-142) 09/29/20 18:25 Potassium 3.3 mmol/L (3.4-4.6) L 09/29/20 18:25 Chloride 103 mmol/L (97-106) 09/29/20 18:25 Carbon Dioxide 26.6 mmol/L (24-32.6) 09/29/20 18:25 Anion Gap 14.7 mmol/L (6.8-13.8) H 09/29/20 18:25 BUN 20 mg/dL (6-23) 09/29/20 18:25 Creatinine 1.20 mg/dL (0.4-1.4) 09/29/20 18:25 Est GFR (Non-Af Amer) 66 mL/min (60-130) 09/29/20 18:25 BUN/Creatinine Ratio 16.7 (9.0-21.6) 09/29/20 18:25 Random Glucose 134 mg/dL (70-110) H 09/29/20 18:25 Calcium 8.8 mg/dL (7.9-10.9) 09/29/20 18:25 Calcium Adj for Albumin 8.8 mg/dL (8.4-10.2) 09/29/20 18:25 Total Bilirubin 0.7 mg/dL (0.0-1.1) 09/29/20 18:25 AST 14 U/L (0-48) 09/29/20 18:25 ALT 23 U/L (19-67) 09/29/20 18:25 Alkaline Phosphatase 54 U/L (50-170) 09/29/20 18:25 Troponin I Less than 0.017 ng/mL (0.00-0.10) 09/29/20 18:25 Total Protein 7.7 gm/dL (6.2-8.2) 09/29/20 18:25 Albumin 3.6 gm/dl (3.4-5.0) 09/29/20 18:25 SARS-CoV-2 (PCR) Not detected (NotDetected) 09/29/20 22:31 Assessment/Plan - Narrative Narrative: Patient was evaluated medical chart was reviewed and decision to admit for observation and treatment of acute pulmonary embolism was made. Patient was started on therapeutic levels of Lovenox which he is tolerating without any issues, we will look into long-term anticoagulation with one of the recommended oral NOACs once we confirm which 1 is covered by his insurance. The patient will have to complete 12 weeks of anticoagulation per guidelines for management of VTE. At the moment he denies any chest pain or shortness of breath and is resting comfortably in his bed. Labs revealed mild hypokalemia so potassium supplement was ordered. - Assessment/Plan (1) Acute pulmonary embolism Problem: Acute (2) Pulmonary embolus, right Problem: Acute (3) Hypokalemia Problem: Acute (1) Acute pulmonary embolism Problem: Acute (2) Pulmonary embolus, right Problem: Acute (3) Hypokalemia Problem: Acute Date of Discharge:: 09/30/20 Hospital Course: Patient was started on therapeutic levels of Lovenox which he is tolerating without any issues, at the moment he denies any chest pain or shortness of breath. He maintains stable vitals and shows no new signs or symptoms. Given these findings we will discharge patient home with a prescription for 12 weeks of long-term anticoagulation with an oral NOAC. He is to also follow-up with his PCP in 1 week. Procedures Performed: none Results and Findings: Lab Pending Results 09/29/20 18:25: WBC 6.4, RBC 4.02 L, Hgb 12.1 L, Hct 35.9 L, MCV 89.3, MCH 30.1, MCHC 33.7, RDW 13.5, Plt Count 103 L, MPV 11.8 H, Immature Gran % (Auto) 0.60 H, Immature Gran # (Auto) 0.04 H, Neutrophils % 67.8, Lymphocytes % 21.4, Monocytes % 8.8, Eosinophils % 0.8, Basophils % 0.6, Nucleated RBC % 0.0, Neutrophils # 4.3, Lymphocytes # 1.36 L, Monocytes # 0.6, Eosinophils # 0.1, Absolute Basophils 0.0 09/29/20 18:25: PT 10.7, INR (Anticoag Therapy) 1.03, PTT (Dante) 23.8 L 09/29/20 18:25: Sodium 141, Plasma Sodium 142, Potassium 3.3 L, Chloride 103, Carbon Dioxide 26.6, Anion Gap 14.7 H, BUN 20, Creatinine 1.20, Est GFR (Non-Af Amer) 66, BUN/Creatinine Ratio 16.7, Random Glucose 134 H, Calcium 8.8, Calcium Adj for Albumin 8.8, Total Bilirubin 0.7, AST 14, ALT 23, Alkaline Phosphatase 54, Troponin I Less than 0.017, Total Protein 7.7, Albumin 3.6 09/29/20 22:31: SARS-CoV-2 (PCR) Not detected Discharge Location: Home Disposition: Home self-care Condition: Fair Face to Face Encounter completed per [facility] Guidelines: No Discharge Activity: Activity as tolerated Discharge Diet: General/regular food Referrals: Gurmeet Sanderson MD [Primary Care Provider] - Prescriptions (Any new or edited meds): Apixaban [Eliquis] 10 mg PO BID 7 Days #28 tab Transmission Status: Pending to [place], [place] Apixaban [Eliquis] 5 mg PO BID 77 Days #154 tab Transmission Status: Pending to [place], [place] Complete Home Medications List: Complete Home Medication List: metoprolol tartrate 100 mg tablet 100 mg PO BID #60 tab 06/11/20 hydrochlorothiazide 25 mg tablet 25 mg PO DAILY #30 tab 07/10/20 Bictegrav/Emtricit/Tenofov Ala [Biktarvy 50-200-25 mg Tablet] 1 ea PO DAILY 09/16/20 Dapsone 100 mg PO DAILY 09/16/20 Apixaban [Eliquis] 5 mg PO BID 77 Days #154 tab 09/30/20 Apixaban [Eliquis] 10 mg PO BID 7 Days #28 tab 09/30/20 Forms: Patient Portal Registration
[2020-09-30 15:22] VITALS: BP 129/80
== END 2020-09-30 14:35 | disposition home or self-care (01) ==
LOC: ER 17:24 → MS 17:24
PROVIDERS: ADMIT Family Medicine; ATTEND Allergy & Immunology